=== PATIENT | male | born 1970 | race Caucasian/White ===

== ENCOUNTER 2016-12-17 22:53 | Emergency (ER) | payer OTHER ==
[~2016-12-17 22:53] MED LIST: ACETAMINOPHEN325 MG PO; ALLOPURINOL100 MG PO; ASPIRIN ADULT L81 MG PO; DILTIAZEM HCL30 MG PO; FENOFIBRATE40 MG; FOLIC ACID1 MG PO; NOVOLOG PE100 UNITS/ SC; VENTOLIN HFA IN; VITAMIN D1000 UNIT PO
--- NOTE | 2016-12-18 01:03 | DIAGNOSTIC IMAGING REPORT ---
PROCEDURE: XR ABDOMEN 1 VIEW UPRIGHT INDICATION: ABDOMINAL PAIN TECHNIQUE: AP upright view. COMPARISON: None. FINDINGS: Nonspecific air-fluid levels in the hepatic flexure suggestive of enterocolitis. There is no free air. No mass or unusual calcification. No suspicious osseous lesions. IMPRESSION: 1. Hepatic flexure nonspecific air-fluid levels suggestive of enterocolitis.
--- NOTE | 2016-12-18 01:16 | ED ORDER SUMMARY ---
..... 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 VisitID: [id number] [address] [place] [address] 45y, M Registration Date/Time: 12/17/2016 ORDER SHEET Weight: 98.8 kg (stated) Allergies: Betadine, Codeine, Gentamicin, Lyrica, Morphine and Related GENERAL ORDERS: Abdomen 1V Upright Urgent (23:49 12/17/2016 Amando DUFFY) (Ack 23:50 Lizzie) (0:07 Georgina R.N.) - (MILK AND MOLASSES ENEMA AFTER X-RAY) (23:49 12/17/2016 Amando DUFFY) (Ack 23:51 Lizzie) (0:07 Georgina R.N.) MEDICATION ORDERS: IV FLUIDS: ORDER SHEET NOTES: [Electronically signed by Yakelin Priest R.N. (01:41 12/18/2016)] [Electronically signed by Carlos Sanchez MD (12:37 12/20/2016)] [Electronically locked/signed by Yakelin Priest R.N. (01:41 12/18/2016)]
--- NOTE | 2016-12-18 01:16 | ED ORDER SUMMARY ---
..... 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 (01:41 12/18/2016)] [Electronically signed by Carlos Sanchez MD (12:37 12/20/2016)] [Electronically locked/signed by Yakelin Priest R.N. (01:41 12/18/2016)]
--- NOTE | 2016-12-18 01:16 | ED NURSING NOTES ---
Clinical Report - Nurses [facility] [place] [address] 12/17/2016 22:52 Patient: TR PORTER TRIAGE Triage time 22:57. Acuity: LEVEL 3. Chief Complaint: ABDOMINAL PAIN and CONSTIPATION (rectal pain, No BM for 3 days). --23:05 Yakelin Priest R.N. 22:57 12/17/16. BP: 151/106 taken on the left arm, while lying. HR: 98 (regular and normal rate). RR: 18. O2 saturation: 97% on room air. Temp: 97.9 F (oral). Pain level now: 04/10. --23:05 Yakelin Priest R.N. Weight: 98.8 kg stated. Height/Length: 67 inches Per Patient. BMI: 34.1. --23:04 Yakelin Priest R.N. Medications Unable to Obtain. --22:58 Yakelin Priest R.N. Allergies Betadine. Codeine. Definite Severe(confusion) Gentamicin. Lyrica. Definite Severe(confusion) Morphine and Related. Definite Severe(confusion) --22:59 Yakelin Priest R.N. History Arrived by EMS. Historian: patient. Primary physician (Kar @ [facility]). Onset. (3 days ago). He has had constipation (for 3 days). He has had cramping, dull abdominal pain (for 3 days). The pain is described as located in the left side of the abdomen. PAST MEDICAL HX: Immunizations: up-to-date. SOCIAL HX: Light tobacco smoker (cigarette)- less than 1/2 a pack per day. No alcohol use or drug use. No infectious disease exposure. No known contact with a sick individual. ABUSE ASSESSMENT: No report of abuse. SELF HARM ASSESSMENT: A self harm assessment was performed. The patient answered "no" to the question "Have you recently felt down, depressed, or hopeless?", "Have you noticed less interest or pleasure in doing things?", "Do you have thoughts of harming or killing yourself?", "Are you here because you tried to hurt yourself?", "Have you ever tried to hurt yourself before today?", "Have you recently had thoughts about harming or killing others?" and "Do you have any dangerous items in your possession?". --23:05 Yakelin Priest R.N. PROBLEMS: Kidney failure. Constipation. Healing Abscess. Back Pain. Hearing aid worn. Sleep Apnea. Abscess. Abcesses. Laceration. Lung Disease. Tetanus Status. Immunizations. Hypertension. COPD - Chronic Obstructive Pulmonary Disease. Asthma. Diabetes Mellitus. --23: Yakelin Priest R.N. ADDITIONAL SURGERIES: Ankle repair . --23: Yakelin Priest R.N. Interventions ID band on patient. --23: Yakelin Priest R.N. PHYSICAL ASSESSMENT To room via stretcher. GENERAL / NEURO / PSYCH: Alert. Oriented X 4. Appears in no acute distress. HEENT: Mucous membranes are pink. RESPIRATORY: Respirations not labored. Breath sounds within normal limits. CVS: Normal sinus rhythm noted. Capillary refill less than 2 seconds. GI / : Abdominal tenderness in the left side of the abdomen. Diminished bowel sounds in the RLQ and LLQ. SKIN: Skin is warm and dry. --23: Yakelin Priest R.N. NURSING PROGRESS NOTES Two patient identifiers checked. Call light placed in reach. Side rails up x 2. Bed placed in lowest position. Brakes of bed on. --23: Yakelin Priest R.N. Patient ready for evaluation- chart flagged. --23:07 Yakelin Priest R.N. Enema given, patient tolerated the procedure well. (Milk and mollassass). The patient reports no complaints and he is calm. --00:09 Yakelin Priest R.N. ( Extra Large BM from Enema, no blood noted). --00:34 Yakelin Priest R.N. DISPOSITION / DISCHARGE Condition at departure: improved and stable. No learning barriers present. Discharge instructions provided and reviewed with the patient. Reviewed high fiber diet and need for increased fluid intake. Patient verbalized understanding. Written instructions provided in Uzbek. No medication instructions, treatment instructions, referrals given to the patient, activity restrictions or note given. The patient was discharged home and unaccompanied at time of discharge. He left the Emergency Department ambulatory and via ([email or web address]). Driving ([employer] transportation @ 0300). --01:41 Yakelin Priest R.N. 01:30 12/18/16. BP: 145/82. HR: 76 (regular and normal rate). RR: 18 (regular and unlabored). O2 saturation: 100% on room air. Temp: deferred. Pain level now: 0/10. --01:41 Yakelin Priest R.N. Departure time: 0130. --01:41 Yakelin Priest R.N. Locked/Released at 12/18/2016 1:41 by Yakelin Priest R.N.
--- NOTE | 2016-12-18 01:16 | ED CLINICAL REPORT ---
Clinical Report - Physicians/Mid Levels 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 Arrived- By ambulance. Historian- patient. HISTORY OF PRESENT ILLNESS Chief Complaint: ABDOMINAL PAIN and CANT HAVE A BM X 3 DAYS. It is described as cramping. This started about 3 days ago; Associated with rectal discomfort and is still present. It was gradual in onset. At its maximum, severity described as moderate. When seen in the E.D., severity described as moderate. No nausea, loss of appetite, vomiting or diarrhea. REVIEW OF SYSTEMS The patient has had constipation. No black stools, difficulty with urination, pain with urination, bloody stools or fever. No chest pain or difficulty breathing. Last bowel movement: 3 days ago. PAST HISTORY Usolteseva DM COPD, Dialysis Ops: [facility]. SOCIAL HISTORY Current every day smoker. ADDITIONAL NOTES The nursing notes have been reviewed. PHYSICAL EXAM Vital Signs: 12/18/2016 01:30 BP: 145/82. HR: 76. RR: 18. O2 saturation: 100%. Pain level now: 0/10. 12/17/2016 22:57 BP: 151/106. HR: 98. RR: 18. O2 saturation: 97%. Temp: 97.9 F. Pain level now: 9/10. Appearance: Alert. No acute distress. Eyes: Eyes normal inspection. ENT: Pharynx normal. Respiratory: No respiratory distress. Breath sounds normal. Abdomen: Soft and nontender. Rectal: Abnormal digital exam: mild tenderness; an intraluminal mass; fecal impaction. Extremities: Extremities exhibit normal ROM. No lower extremity edema. LABS, X-RAYS, AND EKG KUB: Normal abdominal study. (Constipation - OW neg). The X-rays were independently viewed by me. PROGRESS AND PROCEDURES Course of Care: Impressive results with milk and molasses enema. Discomfort is relieved. Disposition: Discharged. Condition: good. CLINICAL IMPRESSION Abdominal pain. (resolved). Constipation INSTRUCTIONS (SEE YOUR DR NEEDED.). Follow-up: Follow up with your doctor as needed. Understanding of the discharge instructions verbalized by patient. (Electronically signed by Carlos Sanchez MD 12/20/2016 12:37)
--- NOTE | 2016-12-18 01:16 | ED NURSING NOTES ---
Clinical Report - Nurses [facility] [place] [address] 12/17/2016 22:52 Patient: TR PORTER TRIAGE Triage time 22:57. Acuity: LEVEL 3. Chief Complaint: ABDOMINAL PAIN and CONSTIPATION (rectal pain, No BM for 3 days). --23:05 Yakelin Priest R.N. 22:57 12/17/16. BP: 151/106 taken on the left arm, while lying. HR: 98 (regular and normal rate). RR: 18. O2 saturation: 97% on room air. Temp: 97.9 F (oral). Pain level now: 04/10. --23:05 Yakelin Priest R.N. Weight: 98.8 kg stated. Height/Length: 67 inches Per Patient. BMI: 34.1. --23:04 Yakelin Priest R.N. Medications Unable to Obtain. --22:58 Yakelin Priest R.N. Allergies Betadine. Codeine. Definite Severe(confusion) Gentamicin. Lyrica. Definite Severe(confusion) Morphine and Related. Definite Severe(confusion) --22:59 Yakelin Priest R.N. History Arrived by EMS. Historian: patient. Primary physician (Kar @ [facility]). Onset. (3 days ago). He has had constipation (for 3 days). He has had cramping, dull abdominal pain (for 3 days). The pain is described as located in the left side of the abdomen. PAST MEDICAL HX: Immunizations: up-to-date. SOCIAL HX: Light tobacco smoker (cigarette)- less than 1/2 a pack per day. No alcohol use or drug use. No infectious disease exposure. No known contact with a sick individual. ABUSE ASSESSMENT: No report of abuse. SELF HARM ASSESSMENT: A self harm assessment was performed. The patient answered "no" to the question "Have you recently felt down, depressed, or hopeless?", "Have you noticed less interest or pleasure in doing things?", "Do you have thoughts of harming or killing yourself?", "Are you here because you tried to hurt yourself?", "Have you ever tried to hurt yourself before today?", "Have you recently had thoughts about harming or killing others?" and "Do you have any dangerous items in your possession?". --23:05 Yakelin Priest R.N. PROBLEMS: Kidney failure. Constipation. Healing Abscess. Back Pain. Hearing aid worn. Sleep Apnea. Abscess. Abcesses. Laceration. Lung Disease. Tetanus Status. Immunizations. Hypertension. COPD - Chronic Obstructive Pulmonary Disease. Asthma. Diabetes Mellitus. --23: Yakelin Priest R.N. ADDITIONAL SURGERIES: Ankle repair . --23: Yakelin Priest R.N. Interventions ID band on patient. --23: Yakelin Priest R.N. PHYSICAL ASSESSMENT To room via stretcher. GENERAL / NEURO / PSYCH: Alert. Oriented X 4. Appears in no acute distress. HEENT: Mucous membranes are pink. RESPIRATORY: Respirations not labored. Breath sounds within normal limits. CVS: Normal sinus rhythm noted. Capillary refill less than 2 seconds. GI / : Abdominal tenderness in the left side of the abdomen. Diminished bowel sounds in the RLQ and LLQ. SKIN: Skin is warm and dry. --23: Yakelin Priest R.N. NURSING PROGRESS NOTES Two patient identifiers checked. Call light placed in reach. Side rails up x 2. Bed placed in lowest position. Brakes of bed on. --23: Yakelin Priest R.N. Patient ready for evaluation- chart flagged. --23:07 Yakelin Priest R.N. Enema given, patient tolerated the procedure well. (Milk and mollassass). The patient reports no complaints and he is calm. --00:09 Yakelin Priest R.N. ( Extra Large BM from Enema, no blood noted). --00:34 Yakelin Priest R.N. DISPOSITION / DISCHARGE Condition at departure: improved and stable. No learning barriers present. Discharge instructions provided and reviewed with the patient. Reviewed high fiber diet and need for increased fluid intake. Patient verbalized understanding. Written instructions provided in Sami. No medication instructions, treatment instructions, referrals given to the patient, activity restrictions or note given. The patient was discharged home and unaccompanied at time of discharge. He left the Emergency Department ambulatory and via ([employer]). Driving ([employer] transportation @ 0300). --01:41 Yakelin Priest R.N. 01:30 12/18/16. BP: 145/82. HR: 76 (regular and normal rate). RR: 18 (regular and unlabored). O2 saturation: 100% on room air. Temp: deferred. Pain level now: 0/10. --01:41 Yakelin Priest R.N. Departure time: 0130. --01:41 Yakelin Priest R.N. Locked/Released at 12/18/2016 1:41 by Yakelin Priest R.N.
--- NOTE | 2016-12-18 01:16 | ED CLINICAL REPORT ---
Clinical Report - Physicians/Mid Levels [facility] [address] [place] [address] 12/17/2016 22:52 Patient: TR PORTER Time Seen: 23:00. Arrived- By ambulance. Historian- patient. HISTORY OF PRESENT ILLNESS Chief Complaint: ABDOMINAL PAIN and CANT HAVE A BM X 3 DAYS. It is described as cramping. This started about 3 days ago; Associated with rectal discomfort and is still present. It was gradual in onset. At its maximum, severity described as moderate. When seen in the E.D., severity described as moderate. No nausea, loss of appetite, vomiting or diarrhea. REVIEW OF SYSTEMS The patient has had constipation. No black stools, difficulty with urination, pain with urination, bloody stools or fever. No chest pain or difficulty breathing. Last bowel movement: 3 days ago. PAST HISTORY Usolteseva DM COPD, Dialysis Ops: [facility]. SOCIAL HISTORY Current every day smoker. ADDITIONAL NOTES The nursing notes have been reviewed. PHYSICAL EXAM Vital Signs: 12/18/2016 01:30 BP: 145/82. HR: 76. RR: 18. O2 saturation: 100%. Pain level now: 0/10. 12/17/2016 22:57 BP: 151/106. HR: 98. RR: 18. O2 saturation: 97%. Temp: 97.9 F. Pain level now: 9/10. Appearance: Alert. No acute distress. Eyes: Eyes normal inspection. ENT: Pharynx normal. Respiratory: No respiratory distress. Breath sounds normal. Abdomen: Soft and nontender. Rectal: Abnormal digital exam: mild tenderness; an intraluminal mass; fecal impaction. Extremities: Extremities exhibit normal ROM. No lower extremity edema. LABS, X-RAYS, AND EKG KUB: Normal abdominal study. (Constipation - OW neg). The X-rays were independently viewed by me. PROGRESS AND PROCEDURES Course of Care: Impressive results with milk and molasses enema. Discomfort is relieved. Disposition: Discharged. Condition: good. CLINICAL IMPRESSION Abdominal pain. (resolved). Constipation INSTRUCTIONS (SEE YOUR DR NEEDED.). Follow-up: Follow up with your doctor as needed. Understanding of the discharge instructions verbalized by patient. (Electronically signed by Carlos Sanchez MD 12/20/2016 12:37)
--- NOTE | 2016-12-20 12:37 | ED MAR SUMMARY ---
..... Medication Administration Record [facility] [address] [place] [address] Patient: TR PORTER Visit ID: [id number] 45y, M Weight: 98.8 kg Height/Length: 67 in BMI: 34.1 ALLERGIES: Codeine, Morphine and Related, Lyrica, Gentamicin, Betadine
--- NOTE | 2016-12-20 12:37 | ED MED RECONCILIATION SUMMARY ---
Patient: TR PORTER Medication Reconciliation Report [facility] VisitID: [id number] [address] [place] [address] 45y, M Registration Date/Time: 12/17/2016 Weight: 98.8 kg Height/Length: 67 in. BMI: 34.1 ALLERGIES: Betadine, Codeine, Gentamicin, Lyrica, Morphine and Related The patient's Home Medications are listed below: Unable to obtain. The source(s) of the original Home Medication information: Not obtained. The following Medications were given to the patient in the Emergency Department: None. The following Medications were prescribed to the patient: None.
--- NOTE | 2016-12-20 12:37 | ED DISCHARGE INSTRUCTIONS ---
Patient: TR PORTER General Instructions [facility] VisitID: [id number] [place] [address] 45y, M Registration Date/Time: 12/17/2016 Abdominal pain. (resolved). Constipation INSTRUCTIONS (SEE YOUR DR NEEDED.). Follow-up: Follow up with your doctor as needed. Understanding of the discharge instructions verbalized by patient. ADDITIONAL INFORMATION Constipation (Adult) Constipation is bowel movements that are less frequent than usual. Stools often become very hard and difficult to pass. This may lead to abdominal pain and bloating. It may also cause painful bowel movements. Constipation may be due to a diet thats low in fiber. Some medications, especially pain medications, can also cause it. Constipation may be treated with enemas, suppositories, laxatives or stool softeners. Your doctor will advise you which will work best for you. Follow the advice below to help avoid this problem in the future. Home Care Medication: Take any medicines as directed. Some laxatives are safe only for occasional use. Others can be taken on a regular basis. Talk to your doctor or pharmacist if you have questions. General Care: Prescription pain medications can cause constipation. If you are prescribed pain medications, ask the doctor whether you should also take a stool softener. A diet high in fiber with plenty of fluids helps to maintain regular, soft bowel movements. The following foods are good sources of dietary fiber: Cereals and breads: Whole grain cereal with bran, oatmeal, rolled oats, whole grain breads Fruits: All fruits (fresh and dried), raisins, prunes, apricots, berries, figs Vegetables: Any fresh vegetables, especially peas, broccoli, brussels sprouts, winter squash, green beans, cauliflower, arce beans, carrots Other: Popcorn, brown rice Drink plenty of water when you increase the amount of fiber you eat. Follow Up with your doctor or return to this facility if symptoms do not improve in the next few days. You may require further tests or a referral to a specialist. Get Prompt Medical Attention if any of the following occur: Fever over 100.4F (38C) Failure to resume normal bowel movements Increasing abdominal or back pain Nausea or vomiting Abdominal swelling Blood in the stool Weakness, dizziness or fainting Unexpected vaginal bleeding You have been given the following additional information: Constipation (Adult) (Electronically signed by Carlos Sanchez MD 12/20/2016 12:37)
--- NOTE | 2016-12-20 12:37 | ED MED RECONCILIATION SUMMARY ---
Patient: TR PORTER Medication Reconciliation Report [facility] VisitID: [id number] [address] [place] [address] 45y, M Registration Date/Time: 12/17/2016 Weight: 98.8 kg Height/Length: 67 in. BMI: 34.1 ALLERGIES: Betadine, Codeine, Gentamicin, Lyrica, Morphine and Related The patient's Home Medications are listed below: Unable to obtain. The source(s) of the original Home Medication information: Not obtained. The following Medications were given to the patient in the Emergency Department: None. The following Medications were prescribed to the patient: None.
--- NOTE | 2016-12-20 12:37 | ED MAR SUMMARY ---
..... Medication Administration Record [facility] [address] [place] [address] Patient: TR PORTER Visit ID: [id number] 45y, M Weight: 98.8 kg Height/Length: 67 in BMI: 34.1 ALLERGIES: Codeine, Morphine and Related, Lyrica, Gentamicin, Betadine
--- NOTE | 2016-12-20 12:37 | ED DISCHARGE INSTRUCTIONS ---
Patient: TR PORTER General Instructions [facility] VisitID: [id number] [place] [address] 45y, M Registration Date/Time: 12/17/2016 Abdominal pain. (resolved). Constipation INSTRUCTIONS (SEE YOUR DR NEEDED.). Follow-up: Follow up with your doctor as needed. Understanding of the discharge instructions verbalized by patient. ADDITIONAL INFORMATION Constipation (Adult) Constipation is bowel movements that are less frequent than usual. Stools often become very hard and difficult to pass. This may lead to abdominal pain and bloating. It may also cause painful bowel movements. Constipation may be due to a diet thats low in fiber. Some medications, especially pain medications, can also cause it. Constipation may be treated with enemas, suppositories, laxatives or stool softeners. Your doctor will advise you which will work best for you. Follow the advice below to help avoid this problem in the future. Home Care Medication: Take any medicines as directed. Some laxatives are safe only for occasional use. Others can be taken on a regular basis. Talk to your doctor or pharmacist if you have questions. General Care: Prescription pain medications can cause constipation. If you are prescribed pain medications, ask the doctor whether you should also take a stool softener. A diet high in fiber with plenty of fluids helps to maintain regular, soft bowel movements. The following foods are good sources of dietary fiber: Cereals and breads: Whole grain cereal with bran, oatmeal, rolled oats, whole grain breads Fruits: All fruits (fresh and dried), raisins, prunes, apricots, berries, figs Vegetables: Any fresh vegetables, especially peas, broccoli, brussels sprouts, winter squash, green beans, cauliflower, arce beans, carrots Other: Popcorn, brown rice Drink plenty of water when you increase the amount of fiber you eat. Follow Up with your doctor or return to this facility if symptoms do not improve in the next few days. You may require further tests or a referral to a specialist. Get Prompt Medical Attention if any of the following occur: Fever over 100.4F (38C) Failure to resume normal bowel movements Increasing abdominal or back pain Nausea or vomiting Abdominal swelling Blood in the stool Weakness, dizziness or fainting Unexpected vaginal bleeding You have been given the following additional information: Constipation (Adult) (Electronically signed by Carlos Sanchez MD 12/20/2016 12:37)
== END 2016-12-18 01:30 | disposition home or self-care (01) ==
LOC: ED SRH 22:53
DX: R10.9 Unspecified abdominal pain (principal); K59.00 Constipation, unspecified; F17.200 Nicotine dependence, unspecified, uncomplicated

== ENCOUNTER 2017-01-19 13:12 | Outpatient (CLI) | payer OTHER ==
--- NOTE | 2017-01-19 13:44 | DIAGNOSTIC IMAGING REPORT ---
PROCEDURE: XR FOOT 3 VIEWS - RIGHT INDICATION: NON HEALING WOUND PREVIOUS RECONSTRUCTION TO THIS FOOT TECHNIQUE: Three views. COMPARISON: None. FINDINGS: Osteolysis and cortical destruction throughout the tarsal metatarsal joints. Previous ankle joint fusion. IMPRESSION: 1. Tarsal metatarsal osteomyelitis.
== END 2017-01-19 23:00 | disposition home or self-care (01) ==
LOC: XR SRH 13:12
DX: M86.8X7 Other osteomyelitis, ankle and foot (principal)